=== PATIENT | female | born 1955 | race Caucasian/White ===

== ENCOUNTER 2018-09-21 08:03 | Emergency (ER) | payer BC, OTHER ==
--- OUTSIDE RECORDS SUMMARY | 2018-09-21 08:15 | XMS REPORT | Continuity of Care Document ---
:1955 External Reference #:[id number] Author Name Rambo Ivan M.D. Address [address] [place] [address] Care Team Providers Name Role Phone Milan Kitchen MD Care Team Information Production Director Unavailable Milan Kitchen MD Primary Care Physician Unavailable Payers Type Date Identification Numbers Payment Provider Subscriber Policy Number: [id number] [employer] Arely Lam PayID: [id number] [place] [address] Advance Directives Description No Information Available Problems Date Description Provider Status Onset: 10/24/2016 Retinal drusen Rambo Ivan M.D. Active Onset: 08/24/2015 Choroidal degeneration, unspecified, Deniz Oswald O.D. Active bilateral Onset: 08/24/2015 Hypermetropia Deniz Oswald O.D. Active Onset: 08/24/2015 Presbyopia Deniz Oswald O.D. Active Onset: 06/28/2015 Superficial injury of cornea Deniz Oswald O.D. Active Onset: 08/21/2014 Tear film insufficiency Rambo Ivan M.D. Active Onset: 08/21/2014 Ocular hypertension Rambo Ivan M.D. Active Family History Date Family Member(s) Problem(s) Comments Father Cancer Father Diabetes Mother Cataract Social History Type Date Description Comments Sex Unknown ETOH Use Currently consumes alcohol Tobacco Use Start: Unknown Patient has never smoked Smoking Status Reviewed: 08/27/18 Patient has never smoked Allergies, Adverse Reactions, Alerts Description No Known Drug Allergies Medications Medication Date Status Form Strength Qnty SIG Indications Ordering Provider Timolol Active GFS 0.5% 15ml 1 drop H40.053 Rambo Pinto 018 both eyes Marzena Ophthalmic Gel every day M.DVick Forming Latanoprost Active Solution 0.005% 7.5uni 1 drops H40.053 Rambo 017 ts both eyes Ivan, every M.D. night Calcium 00/0 Active Tablets Unknown 000 Prolia Active Solution 60mg/ml Unknown 000 Latanoprost Hx Solution 0.005% 2.500m 1 drops H40.053 Rambo 017 - l both eyes Ivan, every M.D. 017 night Alendronate Hx Solution 70mg/75ML Proliria Peter Sodium 014 - q6 months Ivan, M.D. 015 Immunizations Description No Information Available Vital Signs Date Vital Result Comment 08/27/2018 2:54pm Intraocular Pressure Right Eye 17 mmHg Intraocular Pressure Left Eye 16 mmHg 04/02/2018 3:33pm Intraocular Pressure Right Eye 19 mmHg Intraocular Pressure Left Eye 18 mmHg 11/26/2017 2:57pm Intraocular Pressure Right Eye 17 mmHg Intraocular Pressure Left Eye 18 mmHg 08/20/2017 9:09am Intraocular Pressure Right Eye 16 mmHg Intraocular Pressure Left Eye 16 mmHg 05/15/2017 2:03pm Intraocular Pressure Right Eye 15 mmHg Intraocular Pressure Left Eye 15 mmHg 04/24/2017 11:00am Intraocular Pressure Right Eye 25 mmHg Intraocular Pressure Left Eye 27 mmHg Cornea Thickness Left Eye 512 m Cornea Thickness Right Eye 507 m Pachymetry adjusted IOP Right Eye +2 Pachymetry adjusted IOP Left Eye +2 10/24/2016 9:43am Intraocular Pressure Right Eye 23 mmHg Intraocular Pressure Left Eye 24 mmHg 08/24/2015 2:51pm Intraocular Pressure Right Eye 21 mmHg Intraocular Pressure Left Eye 21 mmHg 02/19/2015 3:41pm Intraocular Pressure Right Eye 20 mmHg Intraocular Pressure Left Eye 20 mmHg 08/21/2014 1:14pm Intraocular Pressure Right Eye 23 mmHg Intraocular Pressure Left Eye 26 mmHg Results Description No Information Available Procedures Date Code Description Status 08/27/2018 46549 Oct, Optic Nerve Completed 08/27/2018 32130 Eye Exam Est Intermediate Completed 04/02/2018 26044 Visual Field Exam Extended, Unilateral Or Bilateral Completed 04/02/2018 01571 Eye Exam Est Intermediate Completed 11/26/2017 27167 Fundus Photography W/Interpretation & Report Completed 11/26/2017 88818 Ophthalmoscopy Subsequent Completed 11/26/2017 36204 Eye Exam Est Intermediate Completed 08/20/2017 66746 Eye Exam Est Intermediate Completed 05/15/2017 97881 Eye Exam Est Intermediate Completed 04/24/2017 21286 Corneal Pachymetry, Unilateral/Bilateral Completed 04/24/2017 27712 Eye Exam Est Intermediate Completed 04/24/2017 85683 Visual Field Exam Extended, Unilateral Or Bilateral Completed 04/24/2017 13410 Oct, Optic Nerve Completed 10/24/2016 76100 Fundus Photography W/Interpretation & Report Completed 10/24/2016 89846 Ophthalmoscopy Subsequent Completed 10/24/2016 64230 Refraction Completed 10/24/2016 98998 Eye Exam Est Comprehensive Completed 08/24/2015 26045 Refraction Completed 08/24/2015 70539 Eye Exam Est Intermediate Completed 06/28/2015 97897 Eye Exam Est Intermediate Completed 02/19/2015 15781 Oct, Optic Nerve Completed 02/19/2015 74143 Visual Field Exam Extended, Unilateral Or Bilateral Completed 02/19/2015 93727 Eye Exam Est Intermediate Completed 08/21/2014 35430 Eye Exam Est Comprehensive Completed 08/21/2014 88771 Fundus Photography W/Interpretation & Report Completed 09/10/2011 27029 Visual Field Exam Extended, Unilateral Or Bilateral Completed 07/04/2011 90787 Fundus Photography W/Interpretation & Report Completed 07/04/2011 02036 Eye Exam Est Comprehensive Completed 08/01/2010 64003 Eye Exam Est Comprehensive Completed 07/27/2009 75371 Eye Exam Est Comprehensive Completed 08/16/2008 56907 Visual Field Exam Extended, Unilateral Or Bilateral Completed 08/16/2008 93805 Eye Exam Est Comprehensive Completed 07/14/2008 66674 Eye Exam Est Intermediate Completed 04/30/2007 58700 Corneal Pachymetry, Unilateral/Bilateral Completed 04/30/2007 93348 Eye Exam Est Comprehensive Completed 04/30/2007 61374 Visual Field Exam Extended, Unilateral Or Bilateral Completed 04/30/2007 54502 Ophthalmoscopy Initial Completed 04/30/2007 60108 Fundus Photography W/Interpretation & Report Completed 10/26/2006 14838 Visual Field Exam Extended, Unilateral Or Bilateral Completed 10/26/2006 89568 Eye Exam Est Intermediate Completed 08/13/2006 68299 Eye Exam Est Intermediate Completed 04/24/2006 15213 Visual Field Exam Extended, Unilateral Or Bilateral Completed 03/26/2006 16796 Ophthalmoscopy Initial Completed 03/26/2006 82231 Gonioscopy Completed 03/26/2006 82064 Refraction Completed 03/26/2006 91090 Eye Exam New Intermediate Completed Encounters Type Date Location Provider Dx Diagnosis Office Visit 09/10/2011 Main Office Rambo Ivan, 365.04 Glaucoma Hypertension 8:15a Lee Ocular Plan of Treatment 08/27/2018 - Rambo Ivan M.D.H40.053 Ocular hypertension, bilateralNew Medication:Timolol Maleate Ophthalmic Gel Forming 0.5 % - 1 drop both eyes every dayFollow up:3 mos iop, and full
[2018-09-21 08:28] VITALS: BP 127/73
--- NOTE | 2018-09-21 09:04 | RAD ---
Indication: Left foot pain. 3 views of left foot demonstrates no definite fracture or dislocation. No other bone or joint abnormality is identified. IMPRESSION: No fracture of the left foot is noted.
--- NOTE | 2018-09-21 09:26 | UC ---
Lower Extremity/Ankle HPI - HPI Summary HPI Summary: left foot pain x 1 day inversion injury of her left foot / ankle last night + pain and swelling of the left foot increase pain with walking, better with rest and ice - History of Current Complaint Chief Complaint: UCLowerExtremity Stated Complaint: S/P FALL LEFT FOOT PAIN Time Seen by Provider: 09/21/18 08:29 Hx Obtained From: Patient ?: No Onset/Duration: Sudden Onset, Lasting Days - 1, Still Present Severity Initially: Moderate Severity Currently: Moderate Pain Intensity: 8 Aggravating Factor(s): Standing, Ambulation Alleviating Factor(s): Rest, Elevation, Ice Able to Bear Weight: Yes - Allergies/Home Medications Allergies/Adverse Reactions: Allergies Allergy/AdvReac Type Severity Reaction Status Date / Time No Known Allergies Allergy Verified 09/21/18 08:17 Home Medications: Home Medications Calcium Phosphate Trib/Vit D3 [Conley Calcium + Vi... 250-135-200 mg-mg-Unit] 1 chw PO DAILY 09/21/18 [History Confirmed 09/21/18] Latanoprost 0.005%* [Xalatan 0.005%*] 1 drop BOTH EYES QPM 09/21/18 [History Confirmed 09/21/18] PMH/Surg Hx/FS Hx/Imm Hx - Additional Past Medical History Additional PMH: osteopenia - Surgical History Surgical History: Yes Surgery Procedure, Year, and Place: - Family History Known Family History: Negative: Diabetes - Social History Alcohol Use: Daily Alcohol Amount: 1 drink Substance Use Type: None Smoking Status (MU): Never Smoked Tobacco Review of Systems Constitutional: Negative Skin: Negative Eyes: Negative ENT: Negative Respiratory: Negative Is Patient Immunocompromised?: No All Other Systems Reviewed And Are Negative: Yes Physical Exam Triage Information Reviewed: Yes Appearance: Well-Appearing, No Pain Distress, Well-Nourished Vital Signs: Initial Vital Signs Temp 98.4 F 09/21/18 08:21 Pulse 78 09/21/18 08:21 Resp 18 09/21/18 08:21 BP 127/73 09/21/18 08:21 Pulse Ox 98 09/21/18 08:21 Eye Exam: Normal Eyes: Positive: Conjunctiva Clear ENT: Positive: Normal ENT inspection, Hearing grossly normal, Pharynx normal Neck exam: Normal Respiratory: Positive: Chest non-tender, Lungs clear, Normal breath sounds Cardiovascular: Positive: RRR, No Murmur, Pulses Normal Musculoskeletal: Positive: Other: - left ankle : WNL left foot: + swelling, brusing lateral mid foot , pain with any range of motion Diagnostics - Laboratory Diagnostic Studies Completed/Ordered: left foot xray : concern about fracture cuboid bone Lower Extremity Course/Dx - Differential Dx/Diagnosis Provider Diagnoses: fracture left foot Discharge - Sign-Out/Discharge Documenting (check all that apply): Patient Departure All imaging exams completed and their final reports reviewed: Yes - Discharge Plan Condition: Stable Disposition: HOME Patient Education Materials: Foot Fracture in Adults (ED) Referrals: Cong Marie MD [Medical Doctor] - As Soon As Possible Milan Kitchen MD [Primary Care Provider] - - Billing Disposition and Condition Condition: STABLE Disposition: Home
== END 2018-09-21 09:50 | disposition home or self-care (01) ==
LOC: UCCORT 08:03
DX: S92.902A Unspecified fracture of left foot, initial encounter for closed fracture (principal); X50.1XXA Overexertion from prolonged static or awkward postures, initial encounter; Y92.9 Unspecified place or not applicable
CPT/HCPCS: 99213; G0463